=== PATIENT | male | born 2005 | race Caucasian/White ===

== ENCOUNTER 2025-01-16 17:07 | Emergency (ER) | payer BC ==
[2025-01-16] MEDS: Diphtheria,Pertussis(Acell),Tetanus Vaccine 0.5 ML Syringe IM ONE (17:37)
== END 2025-01-16 17:59 | disposition home or self-care (01) ==
LOC: VM.ED 17:07
DX: S61.211A Laceration without foreign body of left index finger without damage to nail, initial encounter (principal); Z23 Encounter for immunization; W26.8XXA Contact with other sharp object(s), not elsewhere classified, initial encounter
CPT/HCPCS: 12001; 90471; 90715; 99282-25; 99283; J2003